=== PATIENT | male | born 1940 | race Caucasian/White ===

== ENCOUNTER 2018-07-30 05:24 | Inpatient (IN) | payer MEDICARE, BC ==
[2018-07-30] MEDS: TRANEXAMIC ACID 1GM/100ML(PMX) 100 ML IVPB (05:30)
[2018-07-30] MEDS: CEFAZOLIN 2 GM/50 ML (PMX) 50 ML IVPB (05:30)
[2018-07-30] MEDS: DEXAMETHASONE 1 MG TAB PO (06:34)
[2018-07-30] MEDS: GABAPENTIN 300 MG CAP PO ×2 (06:34→20:33)
[2018-07-30] MEDS ORDERED: LIDOCAINE 2% (SDV) 5 ML INJ (06:55)
[2018-07-30] MEDS ORDERED: PROPOFOL 20 ML (06:55)
[2018-07-30] MEDS ORDERED: FENTAnyl 50 MCG/ML VIAL (06:58)
[2018-07-30] MEDS ORDERED: SEVOFLURANE 15 MIN (07:00)
[2018-07-30] MEDS ORDERED: FAMOTIDINE 20 MG INJ (07:08)
[2018-07-30] MEDS ORDERED: DEXAMETHASONE 4 MG/ML 5 ML INJ (07:08)
[2018-07-30] MEDS ORDERED: ONDANSETRON 4 MG INJ (07:08)
[2018-07-30] MEDS ORDERED: CEFAZOLIN 1 GM INJ (07:08)
[2018-07-30] MEDS ORDERED: EPHEDrine 25 MG/5 ML SYG ×2 (07:37→08:34)
[2018-07-30] MEDS: THROMBIN 20,000 UNIT VIAL (07:40)
[2018-07-30] MEDS: BUPIVACAINE 0.5% (SDV) 30 ML, morphine SULFATE (PF) 8 MG, EPINEPHrine 0.3 MG, KETOROLAC... IRR (07:40)
[2018-07-30] MEDS: CA CHLORIDE 10% 10 ML SYRINGE (07:40)
[2018-07-30] MEDS: POLYMYXIN/BACITRACIN 1L IRRIG IRR (07:40)
[2018-07-30] MEDS: TRANEXAMIC ACID 1GM/100ML(PMX) 100 ML (07:42)
[2018-07-30] MEDS ORDERED: MAGNESIUM HYDROXIDE 30ML CUP PO (08:30)
[2018-07-30] MEDS ORDERED: HYDROmorphONE 1 MG/ML SYG IV (08:30)
[2018-07-30] MEDS ORDERED: oxyCODONE 5 MG TAB PO ×2 (08:30)
[2018-07-30] MEDS ORDERED: ZOLPIDEM 5 MG TAB PO (08:30)
[2018-07-30] MEDS ORDERED: ONDANSETRON 4 MG INJ IV (08:30)
[2018-07-30] MEDS ORDERED: DIPHENHYDRAMINE 50 MG INJ IV ×2 (08:30→09:00)
[2018-07-30] MEDS ORDERED: NACL 0.9% 3 ML SYG IV (08:30)
[2018-07-30] MEDS ORDERED: EPHEDrine 25 MG/5 ML SYG IV (09:00)
[2018-07-30] MEDS: AMLODIPINE 10 MG TAB PO (09:00)
[2018-07-30] MEDS ORDERED: PROCHLORPERAZINE 10 MG INJ IV (09:00)
[2018-07-30] MEDS ORDERED: HYDROmorphONE 1 MG/5 ML IV SYRINGE IV ×3 (09:00)
[2018-07-30] MEDS ORDERED: FENTAnyl 50 MCG/ML VIAL IV (09:00)
[2018-07-30] MEDS ORDERED: MEPERIDINE 25 MG INJ IV (09:00)
[2018-07-30] MEDS: LACTATED RINGER'S 1,000 ML IV ×3 (09:10→23:46)
[2018-07-30] MEDS: CEFAZOLIN 1 GM/50 ML (PMX) 50 ML IVPB ×3 (09:11→23:45)
[2018-07-30 09:15] LABS: ADD MAN DIFF? NO
[2018-07-30 09:20] LABS: BASOPHIL # 0.1 10^3/ul (0.0-0.1); BASOPHILS % 0.6 % (0.0-2.0); EOSINOPHILS # 0.2 10^3/ul (0.0-0.5); EOSINOPHILS % 1.7 % (0.0-7.0); HEMATOCRIT 40.4 % (42.0-52.0); HEMOGLOBIN 13.4 g/dl (14.0-18.0); LYMPHOCYTES # 1.3 10^3/ul (0.8-2.9); LYMPHOCYTES % 12.4 % (15.0-51.0); MEAN CORPUSCULAR HEMOGLOBIN 31.2 pg (29.0-33.0); MEAN CORPUSCULAR HGB CONC 33.2 g/dl (32.0-37.0); MEAN CORPUSCULAR VOLUME 94.2 fl (82.0-101.0); MEAN PLATELET VOLUME 9.2 fl (7.4-10.4); MONOCYTE # 0.3 10^3/ul (0.3-0.9); MONOCYTES % 3.1 % (0.0-11.0); NEUTROPHIL # 8.8 10^3/ul (1.6-7.5); NEUTROPHILS % 81.2 % (39.0-77.0); PLATELET COUNT 208 10^3/UL (140-415); RED BLOOD COUNT 4.29 10^6/ul (4.70-6.10); RED CELL DISTRIBUTION WIDTH 12.3 % (11.5-14.5)
[2018-07-30 09:20] LABS: WHITE BLOOD COUNT 10.8 10^3/ul (4.8-10.8)
[2018-07-30] MEDS: ONDANSETRON 4 MG INJ IV (09:31)
[2018-07-30] MEDS: METOPROLOL (XL) 25 MG TAB PO (11:01)
[2018-07-30] MEDS: ACETAMINOPHEN 1000MG/100ML IV 100 ML IVPB ×3 (11:02→23:45)
[2018-07-30] MEDS: DEXAMETHASONE 2 MG TAB PO ×3 (12:57→23:46)
[2018-07-30] MEDS: oxyCODONE 5 MG TAB PO (13:03)
[2018-07-30] MEDS: ATORVASTATIN 20 MG TAB PO (20:32)
[2018-07-30] MEDS: SENNA/DOCUSATE NA (8.6MG/50MG) TAB PO (20:33)
[2018-07-31] MEDS: LACTATED RINGER'S 1,000 ML IV (04:27)
[2018-07-31] MEDS: DEXAMETHASONE 2 MG TAB PO (05:10)
[2018-07-31 05:32] LABS: ADD MAN DIFF? NO
[2018-07-31 05:42] LABS: BASOPHILS % 0.2 % (0.0-2.0); HEMATOCRIT 35.8 % (42.0-52.0); HEMOGLOBIN 11.8 g/dl (14.0-18.0); LYMPHOCYTES # 0.7 10^3/ul (0.8-2.9); LYMPHOCYTES % 3.9 % (15.0-51.0); MEAN CORPUSCULAR HEMOGLOBIN 31.2 pg (29.0-33.0); MEAN CORPUSCULAR VOLUME 94.7 fl (82.0-101.0); MEAN PLATELET VOLUME 9.7 fl (7.4-10.4); MONOCYTE # 1.2 10^3/ul (0.3-0.9); MONOCYTES % 6.4 % (0.0-11.0); NEUTROPHIL # 16.3 10^3/ul (1.6-7.5); NEUTROPHILS % 88.7 % (39.0-77.0); PLATELET COUNT 199 10^3/UL (140-415); RED BLOOD COUNT 3.78 10^6/ul (4.70-6.10); RED CELL DISTRIBUTION WIDTH 12.2 % (11.5-14.5)
[2018-07-31 05:42] LABS: WHITE BLOOD COUNT 18.3 10^3/ul (4.8-10.8)
[2018-07-31] MEDS: SOD CHLORIDE 0.9% 100 ML, TRANEXAMIC ACID 3,000 MG IRR (07:36)
[2018-07-31] MEDS: METOPROLOL (XL) 25 MG TAB PO (09:28)
[2018-07-31] MEDS: AMLODIPINE 10 MG TAB PO (09:29)
[2018-07-31] MEDS: oxyCODONE 5 MG TAB PO (09:30)
[2018-07-31] MEDS: SENNA/DOCUSATE NA (8.6MG/50MG) TAB PO (09:30)
[2018-07-31] MEDS: ASPIRIN (EC) 325 MG TAB PO (09:31)
[2018-07-31] MEDS: LOSARTAN 50 MG TAB PO (09:31)
[2018-08-01] MEDS ORDERED: MAGNESIUM HYDROXIDE 30ML CUP PO (21:00)
== END 2018-07-31 10:52 | disposition home or self-care (01) | DRG 470 ==
LOC: REC 05:24 → MS1 09:49
PROVIDERS: Orthopaedic Surgery
PROC: 0SR904Z Replacement of Right Hip Joint with Ceramic on Polyethylene Synthetic Substitute, Open Approach (ICD-10-PCS; principal; 2018-07-30 06:58)
DX: M16.11 Unilateral primary osteoarthritis, right hip (principal); I10 Essential (primary) hypertension; E78.5 Hyperlipidemia, unspecified
CPT/HCPCS: 72170; 73530; 85025; 86999; 87086; 88304; 88311; 97161